=== PATIENT | female | born 2005 | race Two or more races ===

== ENCOUNTER 2025-04-23 18:30 | Emergency (ER) | payer OTHER ==
[~2025-04-23] VITALS: Ht 154.9 cm; Wt 110.2 kg
[2025-04-23] MEDS ORDERED: ACETAMINOPHEN 500 MG GEL..CAP PO ONE (18:45)
[2025-04-23] MEDS ORDERED: RINGERS SOLUTION,LACTATED 1,000 ML IV SCH (18:45)
[2025-04-23 18:50] VITALS: BP 112/66; O2SAT 98
[2025-04-23] MEDS ORDERED: ADULT LOW DOSE81 M1 PO (18:51)
[2025-04-23] MEDS ORDERED: PRENATAL + DHA1 EAC1 (18:51)
[2025-04-23 19:25] LABS: BASO % 0.4 % (0.1-1.2); EOS # 0.01 (0.04-0.54); EOS % 0.1 % (0.7-7.0); LYMPH # 2.17 (1.18-3.74); LYMPH % 14.5 % (19.3-53.1); MEAN PLATELET VOLUME 9.80 fl (9.4-12.4); MONO # 1.34 (0.24-0.82); MONO % 8.9 % (4.7-12.5); NEUT # 11.33 (1.56-6.13); NEUT % 75.6 % (34.0-71.1); RED CELL DISTRIBUTION WIDTH 13.1 % (11.6-14.4)
[2025-04-23 20:06] LABS: COVID-19 AG NEGATIVE (NEGATIVE)
[2025-04-23 20:10] LABS: ALT/SGPT 43.0 U/L (12-78); AST/SGOT 26.0 U/L (15-37); BILIRUBIN TOTAL 0.24 mg/dL (0.3-1.2); BUN CREA RATIO 5.0 (7.0-25.0); CREATININE SERUM 0.75 mg/dL (0.55-1.02); GFR 97.55; GLOBULINA 4.2 G/DL (2.4-3.5); GLUCOSE FASTING 114.0 mg/dL (65-100); HCG QUANTITATIVE 1752.0 mUI/mL (1-3); OSMOLALITY SERUM 273.0 MOSM/KG (275-295)
[2025-04-23 21:17] LABS: URINE APPEARANCE Clear; URINE BACTERIA 4149.2 uL (0.0-1933); URINE BILIRRUBIN Negative (NEGATIVE); URINE BLOOD Negative; URINE COLOR Yellow; URINE EPITHELIAL CELLS 16.1 uL (0.0-38.8); URINE GLUCOSE Negative (NEGATIVE); URINE KETONE 15 (NEGATIVE); URINE LEUKOCYTE Negative; URINE NITRATE Negative; URINE PROTEIN Negative (NEGATIVE); URINE RBC 30.5 uL (0.0-20.8); URINE UROBILINOGEN 0.2 E.U./dl; URINE WBC 39.2 uL (0.0-23.2)
[2025-04-23 21:31] LABS: URINE CAST 0.58 uL (0.0-1.40)
[2025-04-23] MEDS ORDERED: ZITHROMAX500 MG PO (22:11)
[2025-04-23] MEDS ORDERED: AZITHROMYCIN 500 MG TABLET PO ONE (22:15)
== END 2025-04-23 22:25 | disposition home or self-care (01) ==
LOC: ER 18:30
PROVIDERS: General Practice
DX: O99.512 Diseases of the respiratory system complicating pregnancy, second trimester (principal); J06.9 Acute upper respiratory infection, unspecified; O23.42 Unspecified infection of urinary tract in pregnancy, second trimester; N39.0 Urinary tract infection, site not specified; Z3A.26 26 weeks gestation of pregnancy; Z20.822 Contact with and (suspected) exposure to COVID-19

== ENCOUNTER 2025-07-22 14:15 | Inpatient (IN) | payer OTHER ==
[~2025-07-22] VITALS: Ht 154.9 cm; Wt 4.1 kg
[~2025-07-22 14:15] MED LIST: ADULT LOW DOSE81 M1 PO; PRENATAL + DHA1 EAC1; ZITHROMAX500 MG PO
[2025-07-30 10:08] LABS: URINE APPEARANCE Cloudy; URINE BILIRRUBIN Negative (NEGATIVE); URINE BLOOD Negative; URINE COLOR Dark Yellow; URINE GLUCOSE Negative (NEGATIVE); URINE KETONE Trace (NEGATIVE); URINE LEUKOCYTE Negative; URINE NITRATE Negative; URINE PROTEIN 30 (NEGATIVE); URINE UROBILINOGEN 0.2 E.U./dl
[2025-07-30 10:12] LABS: URINE EPITHELIAL CELLS 41.2 uL (0.0-38.8); URINE RBC 21.8 uL (0.0-20.8); URINE WBC 85.0 uL (0.0-23.2)
[2025-07-30 10:32] LABS: INR < 0.93
[2025-07-30 10:33] LABS: URINE CAST 1.31 uL (0.0-1.40)
[2025-07-30 10:34] LABS: URINE CRYSTALS MODERATE /HPF
[2025-07-30 10:39] LABS: ALT/SGPT 38.0 U/L (12-78); AST/SGOT 26.0 U/L (15-37); BILIRUBIN TOTAL 0.3 mg/dL (0.3-1.2); BUN CREA RATIO 20.0 (7.0-25.0); CREATININE SERUM 0.64 mg/dL (0.55-1.02); GFR 117.14; GLOBULINA 3.9 G/DL (2.4-3.5); GLUCOSE FASTING 88.0 mg/dL (65-100); OSMOLALITY SERUM 277.0 MOSM/KG (275-295)
[2025-07-30 10:43] LABS: BASO % 0.3 % (0.1-1.2); EOS # 0.14 (0.04-0.54); EOS % 0.8 % (0.7-7.0); LYMPH # 2.78 (1.18-3.74); LYMPH % 15.0 % (19.3-53.1); MEAN PLATELET VOLUME 10.30 fl (9.4-12.4); MONO # 1.10 (0.24-0.82); MONO % 5.9 % (4.7-12.5); NEUT # 14.27 (1.56-6.13); NEUT % 76.8 % (34.0-71.1); RED CELL DISTRIBUTION WIDTH 13.9 % (11.6-14.4)
[2025-08-01 06:50] VITALS: BP 122/80
[2025-08-01] MEDS ORDERED: OXYTOCIN 10 UNITS/ML VIAL ONE ×2 (07:36→08:01)
[2025-08-01] MEDS ORDERED: ERYTHROMYCIN BASE OPHT 1GM EACH TUBE OP ONE (07:36)
[2025-08-01] MEDS ORDERED: CEFAZOLIN SODIUM 1,000 MG VIAL IV ONE (09:15)
[2025-08-01] MEDS ORDERED: MORPHINE SULFATE 4 MG/ML VIAL IV PRN (10:00)
[2025-08-01 16:43] VITALS: BP 123/76
[2025-08-01 20:00] VITALS: BP 117/76
[2025-08-02 00:43] VITALS: BP 134/79
[2025-08-02 02:25] LABS: BASO % 0.3 % (0.1-1.2); EOS # 0.10 (0.04-0.54); EOS % 0.6 % (0.7-7.0); LYMPH # 2.29 (1.18-3.74); LYMPH % 12.8 % (19.3-53.1); MEAN PLATELET VOLUME 10.50 fl (9.4-12.4); MONO # 1.32 (0.24-0.82); MONO % 7.4 % (4.7-12.5); NEUT # 14.05 (1.56-6.13); NEUT % 78.2 % (34.0-71.1); RED CELL DISTRIBUTION WIDTH 14.1 % (11.6-14.4)
[2025-08-02] MEDS ORDERED: ACETAMINOPHEN 500 MG GEL..CAP PO PRN (07:30)
[2025-08-02 09:47] VITALS: BP 131/66; O2SAT 98
[2025-08-02 16:00] VITALS: BP 139/85
[2025-08-03] VITALS: BP 136/89
[2025-08-03 09:45] VITALS: BP 103/59
[2025-08-03 15:00] VITALS: BP 106/79
[2025-08-04 01:07] VITALS: BP 144/89
[2025-08-04] MEDS ORDERED: IBUPROFEN800 MG PO (07:50)
[2025-08-04 08:59] VITALS: BP 135/85
== END 2025-08-04 16:52 | disposition home or self-care (01) | DRG 788 ==
LOC: OB/GYN 07-27 14:15 → O/R 08-01 07:00 → OB/GYN 08-01 07:00
PROVIDERS: ADMIT Specialist; ATTEND Specialist
PROC: 4A1HXCZ Monitoring of Products of Conception, Cardiac Rate, External Approach (ICD-10-PCS; 2025-08-01)
PROC: 10D00Z1 Extraction of Products of Conception, Low, Open Approach (ICD-10-PCS; principal; 2025-08-01 13:45)
DX: O33.5XX0 Maternal care for disproportion due to unusually large fetus, not applicable or unspecified (principal); O36.63X0 Maternal care for excessive fetal growth, third trimester, not applicable or unspecified; O33.8 Maternal care for disproportion of other origin; Z3A.40 40 weeks gestation of pregnancy; Z37.0 Single live birth